=== PATIENT | female | born 1995 | race Two or more races ===

== ENCOUNTER 2023-07-17 10:24 | Inpatient (IN) | payer OTHER ==
[~2023-07-17] VITALS: Ht 170.2 cm; Wt 69.0 kg
[2023-07-17] MEDS ORDERED: ONDANSETRON HCL 4 MG/2 ML VIAL IVP PRN (11:30)
[2023-07-17] MEDS ORDERED: LORazepam 2 MG/ML VIAL IVP PRN (11:30)
[2023-07-17] MEDS ORDERED: ZOLPIDEM TARTRATE 5 MG TABLET PO PRN (11:30)
[2023-07-17] MEDS ORDERED: MAGNESIUM HYDROXIDE SUSPENSION 30 ML UDCUP PO PRN (11:30)
[2023-07-17] MEDS ORDERED: SODIUM CHLORIDE 0.9% 1,000 ML IV ONE (11:30)
[2023-07-17] MEDS ORDERED: ACETAMINOPHEN 325 MG TABLET PO PRN (11:30)
[2023-07-17 13:06] LABS: EOSINOPHILS % (AUTO) 0.3 % (1.0-6.0); HEMATOCRIT 36.2 % (36-46); HEMOGLOBIN 12.3 g/dL (12.0-16.0); LYMPHOCYTES # (AUTO) 1.6 K/uL (1.0-4.8); LYMPHOCYTES % (AUTO) 34.7 % (22.0-44.0); MEAN CORPUSCULAR HEMOGLOBIN 30.5 pg (26.0-34.0); MEAN CORPUSCULAR VOLUME 90 fL (80-100); MONOCYTES # (AUTO) 0.3 K/uL (0.1-1.0); MONOCYTES % (AUTO) 6.5 % (2.0-9.0); NEUTROPHILS # (AUTO) 2.7 K/uL (1.8-7.7); NEUTROPHILS % (AUTO) 57.5 % (40.0-70.0); PLATELET COUNT (AUTO) 375 K/uL (150-450); RED BLOOD CELL COUNT(AUTO) 4.04 MIL/uL (4.00-5.20); RED CELL DISTRIBUTION WIDTH 15.5 % (11.5-14.5); WHITE BLOOD COUNT (AUTO) 4.7 K/uL (4.5-11.0)
[2023-07-17 13:19] LABS: ANION GAP 6 mmol/L (8-16); CARBON DIOXIDE 27 mmol/L (22-29); CHLORIDE 102 mmol/L (98-107); CREATININE 0.78 mg/dL (0.60-1.30); GLOMERULAR FILTR. RATE CALC > 60 mL/min (>60); GLUCOSE,RANDOM 95 mg/dL (70-110); POTASSIUM 3.8 mmol/L (3.5-5.1); SODIUM SERUM 135 mmol/L (136-145); UREA NITROGEN, BLOOD 10 mg/dL (7-18)
[2023-07-17 13:30] LABS: ALANINE AMINOTRANSFERASE 27 U/L (12-78); ALBUMIN 3.5 g/dL (3.4-5.0); ALKALINE PHOSPHATASE 86 U/L (46-116); ASPARTATE AMINOTRANSFERASE 17 U/L (15-37); BILIRUBIN,TOTAL 0.2 mg/dL (0.1-1.0); HCG,QUANTITATIVE 306 mIU/mL (0-6); TOTAL PROTEIN, SERUM 7.6 g/dL (6.4-8.2)
[2023-07-17 14:36] LABS: APPEARANCE,URINE HAZY (CLEAR); BILIRUBIN,URINE NEGATIVE (NEGATIVE); COLOR,URINE LIGHT YELLOW (YELLOW); GLUCOSE, URINE (UA) NEGATIVE (NEGATIVE); KETONES,URINE NEGATIVE (NEGATIVE); LEUKOCYTE ESTERASE ,URINE SMALL (NEGATIVE); NITRATE,URINE POSITIVE (NEGATIVE); OCCULT BLOOD,URINE NEGATIVE (NEGATIVE); PROTEIN,URINE NEGATIVE (NEGATIVE); SPECIFIC GRAVITIY, URINE 1.015 (1.003-1.030); UROBILINOGEN,URINE <=1.0 mg/dL (<=1.0)
[2023-07-17 14:43] LABS: ALCOHOL, URINE DRUG SCREEN NEGATIVE (NEGATIVE); AMPHET/METH SCREEN,URINE POSITIVE (NEGATIVE); BARBITURATE SCREEN, URINE NEGATIVE (NEGATIVE); BENZODIAZEPINES SCREEN,URINE NEGATIVE (NEGATIVE); CANNABINOID SCREEN,URINE NEGATIVE (NEGATIVE); COCAINE SCREEN,URINE NEGATIVE (NEGATIVE); METHADONE SCREEN, URINE NEGATIVE (NEGATIVE); OPIATE SCREEN,URINE NEGATIVE (NEGATIVE); PHENCYCLIDINE SCREEN,URINE NEGATIVE (NEGATIVE)
[2023-07-17 14:49] LABS: BACTERIA,URINE Many /HPF (None Seen); RBC,URINE None Seen /HPF (0-2); SQUAMOUS EPITHELIAL CELL,UR Few /LPF (None Seen)
[2023-07-17 20:37] LABS: COVID AG,FIA SOURCE NASAL SWAB
[2023-07-17 20:57] LABS: SARS-COV2 (COVID) ANTIGEN,FIA Negative (Negative)
[2023-07-17 21:28] VITALS: BP 117/65; PULSE 100; RESP 20; TEMP 98.6
[2023-07-17 22:00] VITALS: BP 117/65; PULSE 100; RESP 20; TEMP 98.6
[2023-07-17] MEDS: FAMOTIDINE 20 MG TABLET PO SCH (22:01)
[2023-07-18 04:10] VITALS: BP 107/59; PULSE 110; RESP 20; TEMP 98.3
[2023-07-18] MEDS: FAMOTIDINE 20 MG TABLET PO SCH ×2 (07:53→20:45)
[2023-07-18 07:55] VITALS: BP 101/65; PULSE 88; RESP 20; TEMP 98.4
[2023-07-18 15:24] VITALS: BP 106/64; PULSE 96; RESP 20; TEMP 99.5
[2023-07-18 19:00] VITALS: BP 104/64; PULSE 96; RESP 20; TEMP 98.6
[2023-07-19 08:20] VITALS: BP 98/60; PULSE 90; RESP 19; TEMP 98.7
[2023-07-19] MEDS: FAMOTIDINE 20 MG TABLET PO SCH ×2 (08:26→21:55)
[2023-07-19 19:42] VITALS: BP 99/60; PULSE 90; RESP 18; TEMP 98.9
[2023-07-20 04:07] VITALS: BP 99/62; PULSE 89; RESP 18; TEMP 97.6
== END 2023-07-20 07:40 | DRG 897 ==
LOC: EMS 10:24 → AHU 11:16 → 6S 18:17 → 6N 21:12
PROVIDERS: ADMIT Internal Medicine; ATTEND Internal Medicine
DX: F15.20 Other stimulant dependence, uncomplicated (principal); F17.210 Nicotine dependence, cigarettes, uncomplicated; Z20.822 Contact with and (suspected) exposure to COVID-19
CPT/HCPCS: 76856; 80053; 80307; 81001; 84702; 85025; 87086; 87186; 99285; J7030